=== PATIENT | male | born 1970 | race African-American/Black ===

== ENCOUNTER → 2016-11-12 | Outpatient (CLI) | payer OTHER ==
--- NOTE | 2016-11-12 16:11 | RAD ---
MR of the right knee Indication: Right knee pain and instability. Locking. Technique: The standard multiplanar sequences are obtained. Findings: Medial meniscus: Mild signal at the peripheral aspect, violating the undersurface on a single coronal slice compatible with a possible but very small tear. Lateral meniscus: Anterior horn is absent. Body segment demonstrates some increased signal. There is signal within the posterior horn violating the undersurface. Findings compatible with a tear. Anterior cruciate ligament: Intact Posterior cruciate ligament: Intact Medial collateral ligament: Intact. Iliotibial band: Intact. Posterolateral structures: Mild thickening and signal within the proximal fibular collateral ligament compatible with degeneration or less likely a sprain. No rupture or laxity. Biceps femoris tendon intact. Popliteus tendon are intact. Extensor mechanism: Intact. Mild hypertrophy of the tibial tubercle, chronic. Fluid: Small joint effusion. Small Swenson's cyst. Articular cartilage -patellofemoral joint: Moderate chondromalacia of the femoral trochlea. Mild chondromalacia of the patella. -medial compartment: Focal chondromalacia at the lateral aspect of the medial femoral condyle, with a partial thickness defect measuring 5 mm wide by 5 mm AP. -lateral compartment: Severe smooth cartilage loss with mild subchondral edema and cystic change Bones: No significant lesion or acute fracture. Soft tissue: Mild subcutaneous edema anteriorly. Impression: 1. Lateral meniscal tear. 2. Possible small peripheral tear of the medial meniscus. 3. Primary osteoarthritis, severe at the lateral joint. Electronically signed by: Horacio Paredes MD (11/12/2016 4:08 PM) [facility]
== END | disposition home or self-care (01) ==
LOC: MRI 14:20
PROVIDERS: ATTEND Family Medicine
DX: S83.281A Other tear of lateral meniscus, current injury, right knee, initial encounter (principal); M17.11 Unilateral primary osteoarthritis, right knee; X58.XXXA Exposure to other specified factors, initial encounter; Y93.89 Activity, other specified; Y92.89 Other specified places as the place of occurrence of the external cause; Y99.8 Other external cause status
CPT/HCPCS: 73721

== ENCOUNTER → 2017-10-18 | Outpatient (CLI) | payer OTHER | END | disposition home or self-care (01) | LOC: KCIC MRI 13:55 | DX: M51.36 Other intervertebral disc degeneration, lumbar region (principal); M47.896 Other spondylosis, lumbar region; M48.061 Spinal stenosis, lumbar region without neurogenic claudication; M25.78 Osteophyte, vertebrae; G89.29 Other chronic pain | CPT/HCPCS: 72148 ==

== ENCOUNTER → 2019-05-22 | Outpatient (CLI) | payer OTHER ==
--- NOTE | 2019-05-22 10:56 | KCIC ---
MRI of the lumbar spine without contrast 05/22/2019 CLINICAL HISTORY: Chronic low back pain worsening over last 2 years. TECHNIQUE: Unenhanced T1-weighted and T2-weighted sagittal and axial and inversion recovery sagittal images of the lumbar spine were obtained. FINDINGS: Comparison study is dated 10/18/2017. Minimal S-shaped curvature of the thoracolumbar spine is seen. Degenerative signal changes are seen involving all of the disks of the lumbar spine. Degenerative signal changes are seen within the marrow surrounding these discs. Loss of height of the L3-4 disc is noted. A 1.7 cm hemangioma is seen involving the L2 vertebral body. A 3 cm hemangioma is seen involving the L5 vertebral body. The conus medullaris is normal morphology, position, and signal characteristics. At the L1-2 disc space there is a mild generalized disc bulge. Degenerative changes are seen involving the facet joints bilaterally. These findings do not result in significant central spinal canal or neural foraminal stenosis. At the L2-3 disc space there is a mild generalized disc bulge. Superimposed on this disc bulge is a left paracentral focal disc protrusion. This measures 2 mm in AP diameter. Degenerative changes are seen involving the facet joints bilaterally. There is mild ligamentum flavum hypertrophy bilaterally. There is prominence of the posterior epidural fat. These findings when combined do not result in significant central spinal canal or neural foraminal stenosis. At the L3-4 disc space there is a mild generalized disc bulge. Superimposed on this disc bulge is a right paracentral focal disc herniation. This extrudes inferiorly. The extruded disc fragment measures 1.3 x 0.6 x 0.6 cm in craniocaudal, AP and transverse dimensions. Degenerative changes are seen involving the facet joints bilaterally. There is moderate ligamentum flavum hypertrophy bilaterally. There is prominence of the posterior epidural fat. These findings when combined result in mild central spinal canal stenosis. Severe right lateral recess stenosis is seen. No neural foraminal stenosis is noted. The disc herniation extends to the mid L4 level and appears to impinge upon the right L4 nerve root within the right lateral aspect of the central spinal canal. It is new since previous examination. At the L4-5 disc space there is a mild generalized disc bulge. Superimposed on this disc bulge is a central/right paracentral focal disc protrusion. This measures 2 mm in AP diameter. Degenerative changes are seen involving the facet joints bilaterally. There is mild ligamentum flavum hypertrophy bilaterally. Small facet joint effusions are seen bilaterally. These findings when combined result in mild central spinal canal stenosis. No neural foraminal stenosis is seen. At the L5-S1 disc space there is a mild generalized disc bulge. Superimposed on this disc bulge is a left paracentral focal disc protrusion. This measures 2 mm in AP diameter. Degenerative changes are seen involving the facet joints bilaterally. There are small facet joint effusions bilaterally. These findings when combined do not result in significant central spinal canal or neural foraminal stenosis. IMPRESSION: The changes of degenerative disc disease are seen throughout the lumbar spine. These findings result in mild central spinal canal stenosis at L3-4 and L4-5. No neural foraminal stenosis is seen. At the L3-4 disc space a right paracentral focal disc herniation is seen which extrudes inferiorly to the mid L4 level. This is new since the previous examination. It results in severe right lateral recess stenosis and appears to impinge upon the right L4 nerve root within the right lateral aspect of the central spinal canal. Electronically signed by: Jose D Muñoz MD (05/22/2019 10:53 AM) [email or web address]
== END | disposition home or self-care (01) ==
LOC: KCIC MRI 09:12
PROVIDERS: ATTEND Family Medicine
DX: M51.36 Other intervertebral disc degeneration, lumbar region (principal); M51.27 Other intervertebral disc displacement, lumbosacral region; M47.817 Spondylosis without myelopathy or radiculopathy, lumbosacral region; M48.061 Spinal stenosis, lumbar region without neurogenic claudication; M43.8X5 Other specified deforming dorsopathies, thoracolumbar region; M25.48 Effusion, other site; D18.09 Hemangioma of other sites
CPT/HCPCS: 72148

== ENCOUNTER → 2019-07-10 | Outpatient (CLI) | payer OTHER ==
[~2019-07-10] MED LIST: ATEN50TA PO; LOSA-73 PO; METO50TA6 PO
--- NOTE | 2019-07-10 17:11 | PAIN ---
DATE OF SERVICE: 07/10/2019 INITIAL CONSULTATION FOR PAIN CLINIC CHIEF COMPLAINT: Low back and bilateral lower extremity pain. HISTORY OF PRESENT ILLNESS: This is a 48-year-old male presents with history of pain in the low back, bilateral lower extremities, posterior gluteus, posterior lateral thighs, anterior thighs and medial thighs, medial lower legs, radiating and across the low back, especially for many years, worse over the past 6 months or so, not a result of any specific injury or accident he is aware of, but has been getting worse with time and activity. In the past, he has had some episodes where he would go to the Emergency Room about once every several years and put on muscle relaxants, bed rest, etc. and did well. The patient reports over the past few months, the pain is beginning similar to that, but is not going away as it did previously. The patient reports now the pain is constant. It is sharp and stabbing pain across the low back, shooting in the lower extremities, intermittent in intensity, but always present, changes during the day with walking, standing, changing positions, better with sitting or lying down, but is awakening him from sleep at least once or twice a night. The patient reports it does not affect his bowel or bladder control, but does affect his ability to walk. He fatigues easily with both the legs. The patient reports it is slightly worse on the right, but present on the right and the left. The patient rates his disability rating from 0-10, 10 being the worst, is a 10 with family and home responsibilities and occupation, 8 with recreation, 9 with social activity and sexual behavior, 8 with self-care and 7 with life support activities. The patient has been taking tizanidine as well as tramadol, meloxicam, all of which have decreased the pain mildly, but not to a great extent. The patient has had physical therapy since 2018, also chiropractic treatment, doing exercise currently, had some epidural injections back in 1999 and 2004, which were helpful as well. The patient did have MRI scan of the lumbar spine showing changes of degenerative disk disease, mild central spinal canal stenosis at L3-L4 and L4-L5, L3-L4 disk space has right paracentral focal disk herniation and extrudes inferiorly into the mid L4 level, new from previous examinations, resulted in severe right lateral recess stenosis and appears to impinge on the right L4 nerve root within the right lateral aspect of the spinal canal. L5-S1 shows mild generalized disk bulge with a left paracentral focal disk protrusion as well. PAST MEDICAL HISTORY: Significant for arthritis, hypertension. PREVIOUS SURGERY: Include umbilical hernia repair, tonsillectomy, right meniscectomy and torn bicep on the right repaired. CURRENT MEDICATIONS: Include atenolol, losartan, verapamil, meloxicam and tizanidine. ALLERGIES: The patient has no known drug allergies. FAMILY HISTORY: Significant for hypertension. SOCIAL HISTORY: The patient drinks alcohol about 1-2 drinks a night, does not smoke. Denies any illegal, illicit or recreational drugs. He is , lives with his spouse and lives locally in [place], [place]. The patient reports he works for the [employer] and his job involves climbing, stooping, bending and walking on his feet much of his working day. REVIEW OF SYSTEMS: The patient's review of systems is positive for those items mentioned in history of present illness. All systems reviewed and otherwise negative. It is complete, full and well documented on the patient's chart. PHYSICAL EXAMINATION: VITAL SIGNS: The patient's blood pressure 136/75, pulse 70, respirations 16, temperature 97.8 degrees Fahrenheit, height is 5 feet 10 inches, weight is 243 pounds. GENERAL: The patient is awake, alert, oriented, appropriate, very pleasant demeanor. HEENT: Shows normocephalic, atraumatic. Extraocular movements are intact and symmetrical. Oral cavity: Mucous membranes moist and pink. Dentition is intact. NECK: Shows anterior throat supple without palpable lymphadenopathy noted. Swallow reflex symmetrical. CHEST: Shows normal on inspection. Breath sounds clear to auscultation bilaterally. HEART: Shows S1, S2 clear. No murmurs auscultated. ABDOMEN: Soft, nontender, nondistended. No palpable organomegaly is noted. No rebound or guarding demonstrated. BACK: Shows spine grossly in the midline. Normal appearing thoracic kyphosis and lumbar lordotic curvature. Lumbar paraspinous muscle shows symmetrical on inspection, on palpation shows some moderate tenderness diffusely bilaterally going diffusely without significant radiation. The patient has good rotational motion of lumbar spine, both laterally as well as extension and flexion with some moderate pain with all rotational motion anterior, posterior as well as right and left, but without significant radiation. The patient shows no significant tenderness over the spinous processes, sacrum or sacroiliac regions. EXTREMITIES: The patient's lower extremities show deep tendon reflexes 2+ in the patellar, 1+ tendo-calcaneus tendons. Motor exam is strong with 5/5 dorsiflexion, extension, quadriceps and hamstring flexion symmetrical. Peripheral pulses are 1+ posterior tibia. No peripheral edema is noted. The patient is able to stand, stand on his toes without difficulty or loss of balance, walks with a normal appearing gait for short distance in the office today, not using any assistive devices to ambulate. SKIN: Shows warm and dry, good turgor. No edema. No sores, rashes or bruising throughout. The patient's straight leg raise is noted to be positive on the right about 45 degrees, decreased with knee flexion, left side is negative. Gaenslen's and Donell's maneuvers are negative bilaterally. Lower extremities are warm and dry to touch, equal in color and appearance. IMPRESSION: 1. This is a 48-year-old male with long history of low back pain, bilateral lower extremity pain, worse over the past 6 months or so, status post physical therapy as well as previous interventional techniques, taking anti-inflammatories as well as muscle relaxers only with minimal decrease in pain. 2. Arthritis history. 3. Hypertension. PLAN: Options were discussed with the patient including conservative medical managements, physical therapies and interventional techniques. He would like to pursue interventional techniques. We discussed a lumbar epidural steroid injection using description as well as anatomical models to describe the procedure. The patient will wait for preauthorization with his insurance provider and we will have him return for a L4-L5 translaminar approach epidural steroid injection for his clinical L4-L5 radiculopathy bilaterally, again right greater than left. The patient will try Medrol Dosepak in the meantime, was given instruction as well as side effects to be aware of with the medication and will follow up as scheduled for lumbar epidural steroid injection at that time. RYLAN NUÑEZ MD DR: KATE/janessa JOB#: [id number] / [id number] KILLIAN Lyons MD
== END | disposition home or self-care (01) ==
LOC: PNCL 08:48
PROVIDERS: ATTEND Anesthesiology
DX: M54.5 Low back pain (principal); M79.604 Pain in right leg; M79.605 Pain in left leg; I10 Essential (primary) hypertension; M19.90 Unspecified osteoarthritis, unspecified site
CPT/HCPCS: G0463

== ENCOUNTER → 2019-07-24 | Outpatient (CLI) | payer OTHER ==
[~2019-07-24] MED LIST changes: +IOHEXOL 180 MG/ML 10 ML VIAL. ONE; +methylPREDNISolone ACETATE 40 MG/ML VIAL. ONE; +methylPREDNISolone ACETATE 80 MG/ML VIAL. ONE
--- NOTE | 2019-07-24 11:24 | PAIN ---
DATE OF SERVICE: 07/24/2019 PROGRESS NOTE FOR PAIN CLINIC DIAGNOSES: Lumbar radiculopathy with lumbar degenerative disk disease with lumbar herniated disk. HISTORY OF PRESENT ILLNESS: The patient is a 49-year-old male who returns for followup status post initial evaluation and preauthorization for lumbar epidural steroid injection. The patient reports the Medrol Dosepak did decrease the pain for a moderate extent for about a week while he was taking. The patient reports the pain has returned now in the low back and in the bilateral lower extremities, worse on the left than the right at this time. The patient reports no new motor or sensory deficits, no new bowel or bladder incontinence. Still reports pain across the low back and the legs, aching, sharp and shooting as it was previously. The patient reports it is on and off in intensity. The patient rates it as a 9 on a scale of 10 at its worst over the past week, 8 on average, 7 at its least and is an 8 today. The patient reports no new changes, no new bowel or bladder incontinence or other complaints. PHYSICAL EXAMINATION: VITAL SIGNS: The patient's blood pressure 132/84, pulse 68, respirations 16, temperature is 98.5 degrees Fahrenheit, height is 5 feet 10 inches, weight is 239 pounds. GENERAL: The patient is awake, alert, oriented, appropriate, very pleasant demeanor. HEENT: Shows normocephalic and atraumatic. Extraocular movements are intact and symmetrical. Oral cavity: Mucous membranes moist and pink. Dentition is intact. NECK: Shows anterior throat supple without palpable lymphadenopathy noted. Swallow reflex symmetrical. CHEST: Shows normal on inspection. Breath sounds are clear bilaterally. HEART: Shows S1, S2 clear. No murmurs auscultated. ABDOMEN: Soft, nontender, nondistended. BACK: Shows spine grossly in the midline. Normal appearing thoracic kyphosis and minor flattening of lumbar lordotic curvature. Lumbar paraspinous muscle shows symmetrical on inspection, with tattooing again noted. Paraspinous muscle shows moderately tender with palpation, but only diffusely in the low lumbar distribution bilaterally without radiation. The patient shows good rotational motion of lumbar spine, both laterally as well as extension and flexion without significant pain. EXTREMITIES: Lower extremities show deep tendon reflexes 2+ in the patellar, 1+ tendo-calcaneus tendons. Motor exam is strong with 5/5 dorsiflexion, extension, quadriceps and hamstring flexion and symmetrical. Peripheral pulses are 1+. No peripheral edema is noted. Options were discussed with the patient. The patient's old chart was reviewed as his current medication regimen updated. Current review of systems updated today as well. We will proceed with a lumbar epidural steroid injection today with fluoroscopic guidance. Risks were again discussed including, but not limited to bleeding, infection, possibility of epidural hematoma, subsequent neurological compromise, dural puncture, headaches, spinal cord and/or nerve damage, side effects of steroid medication and poor results regarding pain control. The patient understands and wished to proceed. The patient will return to clinic in approximately 2 weeks for followup. He was counseled on return appointment, activity level and side effects to be aware of. DIAGNOSES: Lumbar radiculopathy with lumbar degenerative disk disease with lumbar herniated disk. PROCEDURE: Lumbar epidural steroid injection, translaminar approach at L4-L5 level using C-arm fluoroscopic guidance under sterile prep and drape using local anesthetic. MEDICATION INJECTED: A total of 120 mg Depo-Medrol plus 10 mL of preservative-free normal saline and 2 mL of contrast. CONDITION AT DISCHARGE: Stable. The patient tolerated the procedure well, had no complications. RYLAN NUÑEZ MD DR: KATE/nts JOB#: [id number] / [id number]
== END ==
LOC: PNCL 10:10
PROVIDERS: ATTEND Anesthesiology
DX: M51.16 Intervertebral disc disorders with radiculopathy, lumbar region (principal)
CPT/HCPCS: 62323; J1030; J1040; Q9965

== ENCOUNTER → 2019-08-07 | Outpatient (CLI) | payer OTHER ==
[~2019-08-07] MED LIST changes: -IOHEXOL 180 MG/ML 10 ML VIAL. ONE; -methylPREDNISolone ACETATE 40 MG/ML VIAL. ONE; -methylPREDNISolone ACETATE 80 MG/ML VIAL. ONE
--- NOTE | 2019-08-07 10:26 | PAIN ---
DATE OF SERVICE: 08/07/2019 PROGRESS NOTE FOR PAIN CLINIC DIAGNOSES: Lumbar radiculopathy with lumbar degenerative disk disease and lumbar herniated disk. HISTORY OF PRESENT ILLNESS: The patient is a 49-year-old male who returns for followup status post lumbar epidural steroid injection x 1. The patient reports about 75-80% improvement in the low back, bilateral lower extremity pain. The patient reports he has been increasing his activity with greater ease and comfort, walking greater distances, sleeping better at night, better with sitting and lying down, worse with walking, standing, changing positions, he still has some significant pain in the low back itself and into the bilateral posterior gluteus, posterolateral thighs, but only very minimally into the thighs, mainly noticeable in the low back, but it "grabs him" from time to time. The patient reports it is much less frequent. The patient reports he increases his activity with greater ability, walking greater distances as well as doing household activities and work activities. The patient reports the pain is sharp and dull, alternating in the low back, shooting across the low back and some in the lower extremities as previous. The patient reports his pain is a 6 on a scale of 10 at its worst over the past week, 3 on average, 3 at its least and is a 3 today. The patient reports no new motor or sensory deficits, no new bowel or bladder incontinence. PHYSICAL EXAMINATION: VITAL SIGNS: The patient's blood pressure is 126/80, pulse 70, respirations 16, temperature is 98.3 degrees Fahrenheit, height is 5 feet 10 inches, weight is 237 pounds. GENERAL: The patient is awake, alert, oriented, appropriate, very pleasant demeanor. HEENT: Shows normocephalic, atraumatic. Extraocular movements are intact and symmetrical. Oral cavity shows mucous membranes moist and pink. Dentition is intact. NECK: Shows anterior throat supple without palpable lymphadenopathy noted. Swallow reflex symmetrical. CHEST: Shows normal on inspection. Breath sounds are clear bilaterally. HEART: Shows S1, S2 clear. No murmurs auscultated. ABDOMEN: Soft, nontender, nondistended. No palpable organomegaly is noted. No rebound or guarding demonstrated. BACK: Shows spine grossly in the midline, normal-appearing cervical lordotic curvature, thoracic kyphotic curvature and lumbar lordotic curvature. Lumbar paraspinous muscle shows symmetrical on inspection, on palpation shows some moderate tenderness diffusely bilaterally, but only diffusely without significant radiation. The patient has good rotational motion of lumbar spine, both laterally as well as extension and flexion without significant difficulty. EXTREMITIES: The patient's lower extremities show deep tendon reflexes 2+ in the patellar, 1+ tendo-calcaneus tendons. Motor exam is strong with 5/5 dorsiflexion, extension, quadriceps and hamstrings are at 5/5 and equal bilaterally. Peripheral pulses are 1+ in the posterior tibial distribution. No peripheral edema is noted to bilateral ankles as well. Options were discussed with the patient. The patient's old chart was reviewed as his current medication regimen updated. Current review of systems updated today as well. We will hold on any further injections at this time as the patient is doing quite a bit better and would like to wait on any further interventions. The patient was encouraged to increase his activity, stretching and strengthening exercises as well as working out more as tolerated. The patient will follow up at this time on an as needed basis for additional injections if necessary. RYLAN NUÑEZ MD DR: KATE/ajnessa JOB#: [id number] / [id number]
== END ==
LOC: PNCL 09:36
PROVIDERS: ATTEND Anesthesiology
DX: M51.16 Intervertebral disc disorders with radiculopathy, lumbar region (principal)
CPT/HCPCS: G0463

== ENCOUNTER → 2019-08-24 | Outpatient (CLI) | payer OTHER ==
--- NOTE | 2019-08-24 11:45 | PAIN ---
DATE OF SERVICE: 08/24/2019 PROGRESS NOTE FOR PAIN CLINIC DIAGNOSES: Lumbar radiculopathy with lumbar degenerative disk disease and lumbar herniated disk. HISTORY OF PRESENT ILLNESS: The patient is a 49-year-old male, who returns for followup status post lumbar epidural steroid injection x 1. The patient reports he is doing quite a bit better, about 75% after the first injection, but the pain is beginning to return now and the pain is across the low back, into the posterior gluteus, posterolateral thigh, lateral anterior thighs, but mostly across the low back. The patient reports it is worse with walking, standing, change in positions. Initially, he was doing much better with distance walking and doing household and work activities and bending and flexing. The patient reports that it is beginning to return now. It does not awaken him from sleep at night, better with sitting or lying down. The patient reports the pain is 8 on a scale of 10 at its worse over the past week, 7 on average, 6 at its least and is a 6 today. The patient reports it is aching and sharp, shooting at times and having some sharper pains in the low back with activity recently. The patient reports he is not really doing any stretching or exercises at this time. Would like to hold on any further injections as his copay is quite high. PHYSICAL EXAMINATION: VITAL SIGNS: Today, the patient's blood pressure 133/91, pulse 72, respirations 16, temperature 98.3 degrees Fahrenheit, height is 5 feet 10 inches, weight is 241 pounds. GENERAL: The patient is awake, alert, oriented, appropriate. He has a very pleasant demeanor. HEENT: Shows normocephalic, atraumatic. Extraocular movements are intact and symmetrical. Oral cavity: Mucous membranes moist and pink. Dentition is intact. NECK: Shows anterior throat supple without palpable lymphadenopathy noted. Swallow reflex symmetrical. CHEST: Shows normal on inspection. Breath sounds are clear bilaterally. HEART: Shows S1, S2 clear. ABDOMEN: Soft, obese, nontender, nondistended. BACK: Shows spine grossly in the midline. Normal-appearing thoracic kyphosis. Some minor flattening of lumbar lordotic curvature. Lumbar paraspinous muscle shows symmetrical on inspection, on palpation shows some moderate tenderness diffusely, bilaterally going diffusely without significant radiation. EXTREMITIES: The patient's lower extremities show deep tendon reflexes at 2+ to patellar, 1+ tendo-calcaneus tendons are equal. Motor exam is strong with 5/5 dorsiflexion, extension, quadriceps and hamstring flexion and symmetrical. Peripheral pulses are 1+ bilaterally. PLAN: Options were discussed with the patient. The patient's old chart was reviewed as his current medication regimen updated. Current review of systems updated today as well and we will hold on any further injections at this time by the patient's choice. We did discuss techniques for stretching and strengthening exercises at home as well as heat and ice applications. I also discussed potential physical therapy in the future. The patient would like to hold on this again currently and give this more time. We will also call Medrol Dosepak in for the patient as he did well with these in the past. The patient was given instruction as well as side effects to be aware of with medication and will follow up in approximately 2 weeks or as needed. RYLAN NUÑEZ MD DR: KATE/janessa JOB#: [id number] / [id number]
== END | disposition home or self-care (01) ==
LOC: PNCL 10:50
PROVIDERS: ATTEND Anesthesiology
DX: M51.16 Intervertebral disc disorders with radiculopathy, lumbar region (principal); M40.294 Other kyphosis, thoracic region
CPT/HCPCS: G0463

== ENCOUNTER → 2019-09-28 | Outpatient (CLI) | payer OTHER ==
--- NOTE | 2019-09-28 11:03 | PAIN ---
DATE OF SERVICE: 09/28/2019 PROGRESS NOTE FOR PAIN CLINIC DIAGNOSES: Lumbar radiculopathy with lumbar degenerative disk disease with lumbar herniated disk. HISTORY OF PRESENT ILLNESS: The patient is a 49-year-old male who returns for followup status post lumbar epidural steroid injection x 1 that was on 07/24/2019. The patient did very well with about 75% improvement. The patient reports the pain is returning now, but still doing fair amount, better if he has been increasing his activity, but noticing some increased pain in the low back as it was previously and into the bilateral lower extremities. The patient reports it is worse with walking, standing, changing positions. He has been trying to get more active. He has been going to the gym more frequently. The patient reports it is still bothersome at night about every 5-6 hours. It can awaken him from sleep, but not every night. The patient reports no new motor or sensory deficits. Initially, he is doing much better with distance walking, doing household activities and work activities. We had filled some papers out for him to be excused from work activities until today's date and we will change this for another 6 weeks as he is still having some pain and the treatment is ongoing at this time. The patient reports the pain is a 9 on a scale of 10 at its worst over the past week, 8 on average, 8 at its least and is an 8 today. The patient reports it is stabbing at times, aching and sharp in the lower extremities and back and can be severe in the back as well with some shooting pain in the legs, but mainly aching in the low back. The patient reports no new motor or sensory deficits, no bowel or bladder incontinence or other complaints. PHYSICAL EXAMINATION: VITAL SIGNS: The patient's blood pressure 142/101, pulse 75, respirations 18, temperature 98.7 degrees Fahrenheit, height is 5 feet 10 inches and weight is 242 pounds. GENERAL: The patient is awake, alert, oriented, appropriate, very pleasant demeanor. HEENT: Shows normocephalic, atraumatic. Extraocular movements are intact and symmetrical. Oral cavity shows mucous membranes moist and pink. Dentition is intact. NECK: Shows anterior throat supple without palpable lymphadenopathy noted. Swallow reflex symmetrical. CHEST: Shows normal on inspection. Breath sounds are clear bilaterally. HEART: Shows S1, S2 clear. No murmurs auscultated. ABDOMEN: Soft, nontender, nondistended. No palpable organomegaly is noted. No rebound or guarding demonstrated. BACK: Shows spine grossly in the midline. Normal appearing thoracic kyphosis and lumbar lordotic curvature. Lumbar paraspinous muscle shows symmetrical on inspection, on palpation shows some moderate tenderness diffusely bilaterally, but only diffusely without significant radiation. The patient has good rotational motion of lumbar spine, both laterally as well as extension and flexion without significant difficulty. EXTREMITIES: The patient's lower extremities show deep tendon reflexes at 2+ in the patellar, 1+ tendo-calcaneus tendons. Motor exam is strong with 5/5 dorsiflexion, extension, quadriceps and hamstring flexion symmetrical. Peripheral pulses are 1+ posterior tibia. No peripheral edema is noted bilaterally. PLAN: Options were discussed with the patient. The patient's old chart was reviewed as his current medication regimen updated. Current review of systems updated today as well. We will hold on any further injections at this time as the patient is doing a fair amount better and would like to increase activity. We discussed specific stretching exercises as well as workout routine and core strengthening, etc. The patient will try this first. If not significantly improved within a few weeks, the patient will return for a second lumbar epidural steroid injection at that time. RYLAN NUÑEZ MD DR: KATE/janessa JOB#: [id number] / [id number]
== END | disposition home or self-care (01) ==
LOC: PNCL 09:29
PROVIDERS: ATTEND Anesthesiology
DX: M51.16 Intervertebral disc disorders with radiculopathy, lumbar region (principal)
CPT/HCPCS: G0463

== ENCOUNTER → 2019-10-23 | Outpatient (CLI) | payer OTHER ==
--- NOTE | 2019-10-23 14:59 | KCIC ---
EXAM: 1. LEFT HAND 3 VIEWS. 2. LEFT WRIST 3 VIEWS. HISTORY: Left hand and wrist pain. COMPARISON: None. FINDINGS: No fractures are identified in the wrist. Alignment is maintained. There is mild distal radioulnar joint osteoarthritis. An ossicle at the tip of the ulnar styloid is consistent with a chronic avulsion fracture or possibly a loose body. The lateral projection is rotated. No fractures are identified throughout the hand. An ossicle along the ulnar base of the first metacarpal is likely a chronically nonunited osteophyte or loose body. First carpometacarpal osteoarthritis is mild. It is also mild at the second and third metacarpophalangeal joints. Alignment is maintained. IMPRESSION: 1. Mild multifocal osteoarthritis as above. Electronically signed by: Dione Gregorio MD (10/23/2019 2:56 PM) [id number]
--- NOTE | 2019-10-23 14:59 | KCIC ---
EXAM: 1. LEFT HAND 3 VIEWS. 2. LEFT WRIST 3 VIEWS. HISTORY: Left hand and wrist pain. COMPARISON: None. FINDINGS: No fractures are identified in the wrist. Alignment is maintained. There is mild distal radioulnar joint osteoarthritis. An ossicle at the tip of the ulnar styloid is consistent with a chronic avulsion fracture or possibly a loose body. The lateral projection is rotated. No fractures are identified throughout the hand. An ossicle along the ulnar base of the first metacarpal is likely a chronically nonunited osteophyte or loose body. First carpometacarpal osteoarthritis is mild. It is also mild at the second and third metacarpophalangeal joints. Alignment is maintained. IMPRESSION: 1. Mild multifocal osteoarthritis as above. Electronically signed by: Dione rGegorio MD (10/23/2019 2:56 PM) [id number]
== END | disposition home or self-care (01) ==
LOC: KCIC 12:24
PROVIDERS: ATTEND Family Medicine
DX: M19.042 Primary osteoarthritis, left hand (principal)
CPT/HCPCS: 73110; 73130

== ENCOUNTER → 2019-11-18 | Outpatient (CLI) | payer OTHER ==
--- NOTE | 2019-11-18 16:06 | PAIN ---
DATE OF SERVICE: 11/18/2019 PROGRESS NOTE FOR PAIN CLINIC DIAGNOSES: Lumbar radiculopathy with lumbar degenerative disk disease and lumbar herniated disk. HISTORY OF PRESENT ILLNESS: The patient is a 49-year-old male who returns for followup status post lumbar epidural steroid injection x 1. The patient reports initially about 60% improvement. Pain is returning now in the low back, bilateral lower extremities, posterior gluteus, posterior lateral thighs, anterior thighs, medial thighs, but mostly across the low back itself. The patient reports no new motor or sensory deficits, but significant tenderness with walking, standing, changing positions, even more than about 5 or 10 minutes on his feet, bending or stooping, repetitive motions is becoming more and more painful. The patient reports it is on and off in intensity with sharp, also alternating with shooting in the lower extremities, dull and aching in the low back. The patient rates it is a 9 on a scale of 10 at its worst in the past week, 8 on average, 7 at its least and is an 8 today. The patient reports it is awakening him from sleep about every 5 hours. No new bowel or bladder incontinence; however, no other complaints. PHYSICAL EXAMINATION: VITAL SIGNS: The patient's blood pressure is 152/101, pulse is 75, respirations 18, temperature is 99.0 degrees Fahrenheit, height is 5 feet 10 inches, weight is 242 pounds. GENERAL: The patient is awake, alert, oriented, appropriate, very pleasant demeanor. HEENT: Shows normocephalic and atraumatic. Extraocular movements are intact and symmetrical. Oral cavity: Mucous membranes moist and pink. Dentition is intact. NECK: Shows anterior throat is supple without palpable lymphadenopathy noted. Swallow reflex symmetrical. CHEST: Shows normal on inspection. Breath sounds are clear bilaterally. No rales, rhonchi or wheezes auscultated. HEART: Shows S1, S2 clear. No murmurs auscultated. ABDOMEN: Soft, nontender, nondistended. No palpable organomegaly is noted. No rebound or guarding demonstrated. BACK: Shows spine grossly in the midline. Normal appearing thoracic kyphosis and some minor flattening of lumbar lordotic curvature. Lumbar paraspinous muscle shows symmetrical on inspection, on palpation shows some moderate tenderness diffusely bilaterally, but only diffusely without significant radiation. The patient has good rotational motion of lumbar spine, both laterally as well as extension and flexion with some minor tenderness with extension, but not with forward flexion. EXTREMITIES: The patient's lower extremities show deep tendon reflexes at 2+ in the patellar, 1+ tendo-calcaneus tendons. Motor exam is strong with 5/5 dorsiflexion, extension, quadriceps and hamstring flexion. Peripheral pulses are 1+ posterior tibia. No peripheral edema is noted. Options were discussed with the patient. The patient's old chart was reviewed as his current medication regimen updated. Current review of systems updated today as well. We will hold on any further injections as patient is dealing with the change in insurance and is not sure if he is going to require preauthorization or not, and we are checking on that as well. The patient is requesting some paperwork to be filled out for his place of employment in the [employer]. We will fill out to the best of our abilities. We are unsure how he responds to the full treatment. It is difficult to answer some of the questions regarding end of treatment ____ conditions, etc, but we will fill out to the best of our ability. The patient understands and acknowledges this. The patient will return to clinic in approximately 1 week. We will plan on lumbar epidural steroid injection #2 at that time once the patient's insurance preauthorization and situation is verified. RYLAN NUÑEZ MD DR: KATE/janessa JOB#: [id number] / [id number]
== END ==
LOC: PNCL 10:27
PROVIDERS: ATTEND Anesthesiology
DX: M51.16 Intervertebral disc disorders with radiculopathy, lumbar region (principal)
CPT/HCPCS: 99212; G0463

== ENCOUNTER → 2021-01-19 | Outpatient (CLI) | payer OTHER ==
--- NOTE | 2021-01-19 15:37 | KCIC ---
MR LUMBAR SPINE WO [id number] History: Reason: CHRONIC LOW BACK PAIN, HERNIATED INTERVERTEBRAL DISC, DEGEN JOINT DISEASE / Spl. Ins tructions: / History: Chronic LBP for yrs, getting worse. Technique: Multiplanar, multi sequential MR imaging was performed of the lumbar spine. Comparison: May 22, 2019 and at October 18, 2017 Findings: Unchanged L2 and L5 vertebral body hemangiomas compared to 2018. Normal vertebral body height and ali gnment. No acute fracture. Increased L5-S1 degenerative endplate edema compared to prior. Conus terminates at the normal location. No evidence of nerve root clumping. T12-L1: Small disc bulge. No canal or neuroforaminal narrowing. L1-L2: Small broad-based disc bulge. Mild facet arthropathy. No canal narrowing. Mild bilateral neur oforaminal narrowing. L2-L3: Small disc bulge. Mild facet arthropathy. No canal narrowing. Moderate left and mild right ne uroforaminal narrowing. L3-L4: Result previously seen right subarticular disc extrusion. Small disc bulge. Mild facet arthro tuan. Mild subacute recess narrowing. No canal narrowing. Moderate bilateral neuroforaminal narrowin g. L4-L5: Central disc extrusion extending superiorly, new compared to prior. Mild canal narrowing. Sub acute recess narrowing with abutment of the descending L5 nerve roots, right greater than left. Mild bilateral neuroforaminal narrowing. Mild facet arthropathy. L5-S1: Small disc bulge. Mild facet arthropathy. No canal narrowing. Mild left neuroforaminal narrow ing. Impression: 1. Multilevel lumbar spondylosis most prominent L3-L4 and L4-L5. 2. New L4-L5 central disc extrusion contributing to mild canal narrowing and subarticular recess carrie rowing with abutment of the descending L5 nerve roots. Correlate for radiculopathy. 3. Resolved previously seen L3-L4 right subarticular disc extrusion. 4. Multilevel neuroforaminal narrowing most prominent left L2-L3 and bilateral L3-L4. Electronically signed by: Jose Enrique Vogel DO (01/19/2021 3:35 PM) [id number]
== END ==
LOC: KCIC MRI 13:12
PROVIDERS: ATTEND Family Medicine
DX: M47.816 Spondylosis without myelopathy or radiculopathy, lumbar region (principal); M51.27 Other intervertebral disc displacement, lumbosacral region; M48.07 Spinal stenosis, lumbosacral region; M48.8X6 Other specified spondylopathies, lumbar region
CPT/HCPCS: 72148